=== PATIENT | male | born 1950 | race Caucasian/White ===

== ENCOUNTER 2023-11-08 13:52 | Emergency (ER) | payer OTHER ==
[2023-11-08 13:59] VITALS: BP 146/61; PULSE 69; RESP 18; TEMP 98; BMI 24.9
[2023-11-08 14:54] LABS: BASO % 0.7 % (0-2.0); EOS % 2.4 % (0-4.5); HEMATOCRIT 43.1 % (35.4-49); HEMOGLOBIN 14.2 GM/dL (11.7-16.9); LYMPH % 39.6 % (8-40); MEAN PLT VOLUME 9.6 fl (7.5-11.1); NEUT % 46.3 % (42.8-82.8); PLATELET COUNT 204 10^3/uL (134-434); RBC 4.73 M/mm3 (4.00-5.60); WHITE BLOOD COUNT 5.9 K/mm3 (4.0-10.0)
[2023-11-08 15:19] LABS: POTASSIUM 4.5 mmol/L (3.5-5.1)
[2023-11-08 15:25] LABS: MAGNESIUM 2.2 mg/dL (1.8-2.4)
[2023-11-08 15:26] LABS: ALBUMIN 3.9 g/dl (3.4-5.0)
[2023-11-08 15:28] LABS: CREATININE 1.1 mg/dL (0.55-1.3)
[2023-11-08 15:30] LABS: BILIRUBIN,TOTAL 0.8 mg/dL (0.2-1); TOT PROT 7.7 g/dl (6.4-8.2)
== END 2023-11-08 15:45 | disposition home or self-care (01) ==
LOC: JER 13:52
DX: R79.89 Other specified abnormal findings of blood chemistry (principal)
CPT/HCPCS: 36415; 80053; 83735; 85025; 93005; 93010; 99284-25